=== PATIENT | male | born 1995 ===

== ENCOUNTER 2020-06-27 16:22 | Emergency (ER) | payer BC ==
[~2020-06-27] VITALS: Ht 182.9 cm; Wt 88.5 kg
--- NOTE | 2020-06-27 16:44 | NUR ---
PT IS IN ROOM #2A. DR RICCIALUATED THE PT.
[2020-06-27 17:26] LABS: BASOPHILS % (AUTO) 0.6 % (0.0-2.0); EOSINOPHILS % (AUTO) 0.9 % (0.0-7.0); HEMATOCRIT 45.8 % (36.7-47.1); HEMOGLOBIN 15.3 g/dL (12.5-16.3); LYMPHOCYTES # (AUTO) 1.2 K/uL (20.0-40.0); LYMPHOCYTES % (AUTO) 31.1 % (20.5-51.5); MEAN CORPUSCULAR HEMOGLOBIN 29.4 uug (23.8-33.4); MEAN CORPUSCULAR HGB CONC 34 g/dL (32.5-36.3); MEAN CORPUSCULAR VOLUME 87.6 fL (73.0-96.2); MONOCYTES # (AUTO) 0.4 K/uL (2.0-10.0); NEUTROPHILS # (AUTO) 2.2 K/uL (1.8-8.9); NEUTROPHILS % (AUTO) 56.4 % (38.5-71.5); PLATELET COUNT (AUTO) 186 K/uL (152-348); RED BLOOD CELL COUNT(AUTO) 5.23 MIL/uL (4.06-5.63); WHITE BLOOD COUNT (AUTO) 3.9 K/uL (3.6-10.2)
[2020-06-27 17:33] LABS: CREATININE 1.2 mg/dL (0.6-1.3)
[2020-06-27] MEDS ORDERED: HYDROCODONE/APAP 10-325 MG TABLET PO ONE (18:00)
[2020-06-27] MEDS ORDERED: HYDROCODONE/APAP 10-325 MG TABLET ONE (18:06)
[2020-06-27 18:38] VITALS: BP 132/77
--- NOTE | 2020-06-27 18:38 | NUR ---
PT WAS D/C'd TO HOME. D/C INSTRUCTIONS GIVEN TO THE PT BY DR HUTCHISON.
== END 2020-06-27 18:39 | disposition home or self-care (01) ==
LOC: EDBD 16:26 → ER 16:26
DX: R07.89 Other chest pain (principal)
CPT/HCPCS: 36415; 71045; 85025; A4663